=== PATIENT | male | born 1960 | race Two or more races ===

== ENCOUNTER 2018-08-05 13:15 | Emergency (ER) | payer OTHER ==
[~2018-08-05] VITALS: Ht 154.9 cm; Wt 68.0 kg
== END 2018-08-05 18:16 | disposition home or self-care (01) ==
LOC: ER 13:15
DX: S80.02XA Contusion of left knee, initial encounter (principal); W18.39XA Other fall on same level, initial encounter; Y93.89 Activity, other specified; Y92.89 Other specified places as the place of occurrence of the external cause; Y99.8 Other external cause status

== ENCOUNTER 2018-08-28 19:41 | Emergency (ER) | payer OTHER ==
[~2018-08-28] VITALS: Ht 162.6 cm; Wt 78.9 kg
[2018-08-28] MEDS ORDERED: CLONAZEPAM0.5 M1 PO (20:04)
== END 2018-08-28 23:23 | disposition home or self-care (01) ==
LOC: ER 19:41
DX: L03.116 Cellulitis of left lower limb (principal)

== ENCOUNTER 2018-09-01 11:31 | Emergency (ER) | payer OTHER ==
[~2018-09-01] VITALS: Ht 162.6 cm; Wt 78.0 kg
[~2018-09-01 11:31] MED LIST: CLONAZEPAM0.5 M1 PO
== END 2018-09-01 16:44 | disposition home or self-care (01) ==
LOC: ER 11:31
DX: M25.562 Pain in left knee (principal)

== ENCOUNTER → 2019-03-25 | Outpatient (CLI) | payer OTHER | END | disposition home or self-care (01) | LOC: RAD 16:24 | DX: M17.0 Bilateral primary osteoarthritis of knee (principal) ==

== ENCOUNTER 2019-04-08 16:18 | Outpatient (CLI) | payer OTHER | END 2019-04-08 16:38 | disposition home or self-care (01) | LOC: RAD 16:18 | DX: M19.071 Primary osteoarthritis, right ankle and foot (principal) ==

== ENCOUNTER 2021-08-30 20:31 | Emergency (ER) | payer OTHER ==
[~2021-08-30] VITALS: Ht 193 cm; Wt 68.9 kg
[2021-08-31] MEDS ORDERED: MONODOX100 MG PO (09:46)
[2021-08-31] MEDS ORDERED: INTESTINEX680 M1 PO (09:46)
[2021-08-31] MEDS ORDERED: MEDROLPACK PO (09:46)
== END 2021-08-31 10:02 | disposition home or self-care (01) ==
LOC: ER 20:31
DX: J15.7 Pneumonia due to Mycoplasma pneumoniae (principal); R09.02 Hypoxemia; Z72.0 Tobacco use; B18.2 Chronic viral hepatitis C; Z20.822 Contact with and (suspected) exposure to COVID-19; J44.9 Chronic obstructive pulmonary disease, unspecified; J84.9 Interstitial pulmonary disease, unspecified

== ENCOUNTER → 2022-01-11 | Emergency (ER) | payer OTHER ==
[~2022-01-11] MED LIST changes: +INTESTINEX680 M1 PO; +MEDROLPACK PO; +MONODOX100 MG PO
== END | disposition left against medical advice (07) ==
LOC: ER 13:00
DX: S51.852A Open bite of left forearm, initial encounter (principal); W54.0XXA Bitten by dog, initial encounter; Y93.9 Activity, unspecified; Y92.89 Other specified places as the place of occurrence of the external cause; Y99.9 Unspecified external cause status

== ENCOUNTER 2023-02-24 07:08 | Outpatient (CLI) | payer OTHER | END 2023-02-24 07:10 | disposition home or self-care (01) | LOC: NUCLEAR 07:08 | PROVIDERS: ATTEND Internal Medicine | DX: R07.9 Chest pain, unspecified (principal); I10 Essential (primary) hypertension; R06.09 Other forms of dyspnea ==